=== PATIENT | male | born 1950 | race African-American/Black ===

== ENCOUNTER 2018-08-01 16:26 | Inpatient (IN) | payer MEDICARE ==
[~2018-08-01] VITALS: Ht 190.5 cm; Wt 92.3 kg
[~2018-08-01 16:26] MED LIST: AMLO-145 PO; DOCU-144 PO; OMEP20CA16 PO; TIMO15DR16 BOTH EYES
[2018-08-01 16:29] VITALS: Ht 190.5 cm; Wt 92.3 kg
[2018-08-01] MEDS ORDERED: SOD CHLORIDE 0.9% 500 ML IV STA (17:23)
[2018-08-01] MEDS ORDERED: TIMO5DRO30 BOTH EYES (18:00)
[2018-08-01] MEDS ORDERED: AMLO-147 PO (18:00)
[2018-08-01] MEDS ORDERED: OMEP20CA16 PO (18:01)
--- NOTE | 2018-08-01 18:40 | ERD ---
ER Documentation Chief Complaint Chief Complaint BLOOD IN STOOL TODAY HPI 67-year-old male with a history of hypertension and GI bleed recently admitted to [facility] for severe GI bleeding in May 20, 2018, presenting to the ER for b loody bowel movements that started today at 4 PM. He has had multiple gross bloody bowel movements with no associated rectal or abdominal pain. He denies any dizziness, chest pain, shortness of breath. He had 2 colonoscopies and an endoscopy done at [facility] which did not reveal any source of bleeding. He was diagnosed with a "retroperitoneal mass" and was told to get a biopsy which she has not done yet. He does drink alcohol, multiple drinks a day. However he was not told that he had esophageal varices or ulcers. ROS All systems reviewed and are negative except as per history of present illness. Medications Home Meds Reported Medications Omeprazole* (Omeprazole*) 20 Mg Capsule.dr, 20 MG PO DAILY, #30 CAP 08/01/18 Amlodipine Besylate* (Amlodipine Besylate*) 10 Mg Tablet, 10 MG PO DAILY, #30 TAB 08/01/18 Timolol Maleate* (Timoptic*) 0.5%-5ml Opht, 1 DROP BOTH EYES BID, #1 EA 08/01/18 Discontinued Reported Medications Amlodipine Besylate* (Amlodipine Besylate*) 5 Mg Tablet, 5 MG PO DAILY, #30 TAB 03/23/16 Omeprazole* (Omeprazole*) 20 Mg Capsule.dr, 20 MG PO DAILY, #30 CAP 03/23/16 Timolol Maleate* (Timolol Maleate* Ophth) 0.5%-15ml Opht, 1 DROP BOTH EYES BID, #1 EA 03/23/16 Discontinued Scripts Docusate Sodium* (Colace*) 100 Mg Capsule, 100 MG PO BID for CONSTIPATION, #30 CAP Prov:REX NATH 03/24/16 Allergies Allergies: Coded Allergies: Gadolinium-Containing Contrast Medi (Unverified Allergy, Unknown, 08/01/18) iodine (Verified Allergy, Unknown, 08/01/18) technetium-99m (Unverified Allergy, Unknown, 08/01/18) PMhx/Soc History of Surgery: Yes (T&A, HYSTEOCYTOMA R NOSE, R ARM SQUAMOUS CELL REMVL) Anesthesia Reaction: No Hx Neurological Disorder: No Hx Respiratory Disorders: No Hx Cardiac Disorders: Yes (HTN) Hx Psychiatric Problems: No Hx Miscellaneous Medical Probl: Yes (INGUINAL HERNIA, ANEMIA (W/ BLOOD TRANSFUSION)) Hx Alcohol Use: Yes (OCCASIONAL) Hx Substance Use: No Hx Tobacco Use: Yes (1 PPD X47 YRS) Smoking Status: Current every day smoker FmHx Family History: No diabetes Physical Exam Vitals Vital Signs Date Temp Pulse Resp B/P (MAP) Pulse Ox O2 O2 Flow FiO2 Time Delivery Rate 08/01/18 98.4 82 18 124/77 98 Room Air 17:30 (93) 08/01/18 97.6 98 20 135/80 100 16:29 (98) Physical Exam Const: No acute distress Head: Atraumatic Eyes: Normal Conjunctiva ENT: Normal External Ears, Nose and Mouth. Neck: Full range of motion. No meningismus. Resp: Clear to auscultation bilaterally Cardio: Regular rate and rhythm, no murmurs Abd: Soft, non tender, non distended. Normal bowel sounds Skin: No petechiae or rashes Back: No midline or flank tenderness Ext: No cyanosis, or edema Neur: Awake and alert Psych: Normal Mood and Affect Result Diagram: 08/01/18 1727 08/01/18 1727 Results 24 hrs Laboratory Tests Test 08/01/18 17:27 White Blood Count 6.0 10^3/ul Red Blood Count 4.23 10^6/ul Hemoglobin 11.4 g/dl Hematocrit 35.2 % Mean Corpuscular Volume 83.2 fl Mean Corpuscular Hemoglobin 27.0 pg Mean Corpuscular Hemoglobin Concent 32.4 g/dl Red Cell Distribution Width 13.0 % Platelet Count 149 10^3/UL Mean Platelet Volume 9.9 fl Immature Granulocytes % 0.200 % Neutrophils % 78.8 % Lymphocytes % 11.6 % Monocytes % 8.4 % Eosinophils % 0.5 % Basophils % 0.5 % Nucleated Red Blood Cells % 0.0 /100WBC Immature Granulocytes # 0.010 10^3/ul Neutrophils # 4.8 10^3/ul Lymphocytes # 0.7 10^3/ul Monocytes # 0.5 10^3/ul Eosinophils # 0.0 10^3/ul Basophils # 0.0 10^3/ul Nucleated Red Blood Cells # 0.0 10^3/ul Prothrombin Time 13.7 Sec Prothrombin Time Ratio 1.1 INR International Normalized Ratio 1.04 Activated Partial Thromboplast Time 31.5 Sec Stool Occult Blood POSITIVE Sodium Level 145 mmol/L Potassium Level 3.9 mmol/L Chloride Level 106 mmol/L Carbon Dioxide Level 28 mmol/L Anion Gap 11 Blood Urea Nitrogen 25 mg/dl Creatinine 0.79 mg/dl Est Glomerular Filtrat Rate mL/min > 60 mL/min Glucose Level 92 mg/dl Calcium Level 9.3 mg/dl Total Bilirubin 0.1 mg/dl Direct Bilirubin 0.00 mg/dl Indirect Bilirubin 0.1 mg/dl Aspartate Amino Transf (AST/SGOT) 25 IU/L Alanine Aminotransferase (ALT/SGPT) 24 IU/L Alkaline Phosphatase 59 IU/L Total Protein 6.8 g/dl Albumin 4.4 g/dl Globulin 2.40 g/dl Albumin/Globulin Ratio 1.83 Current Medications Medications Dose Sig/Kayla Start Time Status Last (Trade) Ordered Route PRN Stop Time Admin Dose Reason Admin Sodium 500 ml @ Q1H STAT 08/01/18 DC 08/01/18 Chloride 500 mls/hr IV 17:23 08/01/18 17:46 18:22 Ondansetron 4 mg ER BRIDGE 08/01/18 HCl (Zofran PRN IV 19:00 08/02/18 Inj) NAUSEA AND/OR 18:59 VOMITING 650 mg ER BRIDGE 08/01/18 Acetaminophen PRN PO MILD 19:00 08/02/18 (Tylenol PAIN(1-3)OR 18:59 Tab) ELEVATED TEMP Sodium 1,000 ml @ Q10H IV 08/01/18 08/01/18 Chloride 100 mls/hr 19:00 19:12 Procedures/MDM EMERGENT LABS AND DIAGNOSTIC STUDIES: Lab Results above were reviewed and interpreted by me. CBC: Mild anemia CMP: Mild hypernatremia with elevated BUN. No evidence of severe electrolyte abnormality, renal failure, hypoglycemia, liver failure, or biliary obstruction Coags normal with no evidence of coagulopathy Initial Nursing notes reviewed. Previous Medical Records requested via the Electronic Health Record. EMERGENCY DEPARTMENT COURSE / MEDICAL DECISION MAKING: Patient is presenting with grossly bloody bowel movements of unclear etiology. I have a higher suspicion for a lower source of the bleed rather than upper GI bleed. He is hemodynamically stable without evidence of severe anemia. However given he has had multiple bloody bowel movements within the past 2 hours, I do not feel he is stable for discharge and will require admission. I have requested his records from [facility]. At this time he does not need a blood transfusion but is at risk for rapid decompensation and anemia. I did request records from [facility] and received some of the records that show that the patient had a colonoscopy and a tagged RBC scan done there without any clear evidence of where the GI bleeding was coming from. I contacted GI, Dr. Christiansen, per the request of the admitting team for consultation but have not heard back from him yet. Accepting Care Team: Current data and ongoing care discussed. Time: Time of admission Primary Provider: Dr. Adhikari Departure Diagnosis: Primary Impression: Rectal bleeding Condition: Serious GLENYS ALFONSO MD Aug 01, 2018 18:39
[2018-08-01] MEDS ORDERED: ACETAMINOPHEN 325 MG TAB PO PRN (19:00)
[2018-08-01] MEDS ORDERED: ONDANSETRON 4 MG INJ IV PRN (19:00)
[2018-08-01] MEDS: SOD CHLORIDE 0.9% 1,000 ML IV SCH (19:12)
[2018-08-01 23:25] VITALS: PULSE 91
--- NOTE | 2018-08-01 23:57 | HP ---
Date/Time of Note Date/Time of Note DATE: 08/01/18 TIME: 23:57 Assessment/Plan VTE Prophylaxis Pharmacological prophylaxis: heparin Lines/Catheters IV Catheter Type (from Nrs): Peripheral IV Assessment/Plan Assessment/Plan 1. Bright red blood per rectum -Admit to telemetry unit -Protonix drip -Monitor H&H closely and transfuse as needed -GI consult -Patient reported having had EGD and colonoscopy at [facility] couple months ago. Will attempt to obtain records 2. Hypertension: BP within goal 3. History of right arm SCC, status post excisional removal Result Diagram: 08/01/18 1727 08/01/18 1727 Results 24hrs Laboratory Tests Test 08/01/18 17:27 White Blood Count 6.0 Red Blood Count 4.23 L Hemoglobin 11.4 L Hematocrit 35.2 L Mean Corpuscular Volume 83.2 Mean Corpuscular Hemoglobin 27.0 L Mean Corpuscular Hemoglobin Concent 32.4 Red Cell Distribution Width 13.0 Platelet Count 149 Mean Platelet Volume 9.9 # Immature Granulocytes % 0.200 Neutrophils % 78.8 H Lymphocytes % 11.6 L Monocytes % 8.4 Eosinophils % 0.5 Basophils % 0.5 Nucleated Red Blood Cells % 0.0 Immature Granulocytes # 0.010 Neutrophils # 4.8 Lymphocytes # 0.7 L Monocytes # 0.5 Eosinophils # 0.0 Basophils # 0.0 Nucleated Red Blood Cells # 0.0 Prothrombin Time 13.7 Prothrombin Time Ratio 1.1 INR International Normalized Ratio 1.04 Activated Partial Thromboplast Time 31.5 Stool Occult Blood POSITIVE Sodium Level 145 H Potassium Level 3.9 Chloride Level 106 Carbon Dioxide Level 28 Anion Gap 11 Blood Urea Nitrogen 25 H Creatinine 0.79 Est Glomerular Filtrat Rate mL/min > 60 Glucose Level 92 Calcium Level 9.3 Total Bilirubin 0.1 L Direct Bilirubin 0.00 Indirect Bilirubin 0.1 Aspartate Amino Transf (AST/SGOT) 25 Alanine Aminotransferase (ALT/SGPT) 24 Alkaline Phosphatase 59 Total Protein 6.8 Albumin 4.4 Globulin 2.40 Albumin/Globulin Ratio 1.83 HPI/ROS Admit Date/Time Admit Date/Time Aug 01, 2018 at 18:43 Hx of Present Illness This is a [age]-year-old male with a history of hypertension, right arm SCC status post excisional removal. Patient presented to the ER complaining of bright red blood per rectum. Denied hematemesis. Reported history of GI bleed. He said he had EGD and colonoscopy at [facility] couple months ago. He said he was told it was negative. It seems like at that time his hemoglobin was as low as 4. When presented to ER, vitals were stable. Initial hemoglobin 11. PMH/Family/Social Past Medical History Medications Current Medications Ondansetron HCl (Zofran Inj) 4 mg ER BRIDGE PRN IV NAUSEA AND/OR VOMITING; Start 08/01/18 at 19:00; Stop 08/02/18 at 18:59 Acetaminophen (Tylenol Tab) 650 mg ER BRIDGE PRN PO MILD PAIN(1-3)OR ELEVATED TEMP; Start 08/01/18 at 19:00; Stop 08/02/18 at 18:59 Sodium Chloride 1,000 ml @ 100 mls/hr Q10H IV Last administered on 08/01/18at 19:12; Admin Dose 100 MLS/HR; Start 08/01/18 at 19:00 Coded Allergies: Gadolinium-Containing Contrast Medi (Unverified Allergy, Unknown, 08/01/18) iodine (Verified Allergy, Unknown, 08/01/18) technetium-99m (Unverified Allergy, Unknown, 08/01/18) Social History Smoking Status: Current every day smoker Exam/Review of Systems Vital Signs Vitals Vital Signs Date Temp Pulse Resp B/P (MAP) Pulse Ox O2 O2 Flow FiO2 Time Delivery Rate 08/01/18 91 23:25 08/01/18 20 122/61 98 Room Air 23:06 (81) 08/01/18 98.2 20:30 Exam Exam Constitutional: other (no acute distress) Head: normocephalic Respiratory: other (slight decreased at bases) Cardiovascular: regular rate and rhythm Gastrointestinal: soft Extremities: normal pulses PMH/Family/Social Past Medical History Medical History: other (see hpi) Coded Allergies: No Known Drug Allergy (Verified Allergy, Unknown, 03/17/16) Past Surgical History Past Surgical Hx: other (see hpi) Family History Significant Family History: no pertinent family hx Social History Alcohol Use: other Smoking Status: Unknown if ever smoked Drug Use: other TINY VAZQUEZ MD Aug 01, 2018 23:57
[2018-08-02] VITALS (10 sets, daily range): BP systolic 104–131; BP diastolic 59–67; PULSE 62–75; RESP 18
[2018-08-02] MEDS: PANTOPRAZOLE IV 80 MG in SOD CHLORIDE 0.9% 100 ML IV SCH ×2 (03:52→13:00)
[2018-08-02] MEDS: SOD CHLORIDE 0.9% 1,000 ML IV SCH ×2 (05:34→15:00)
[2018-08-02] MEDS ORDERED: SOD CHLORIDE 0.9% 250 ML IV* ONE (09:02)
--- NOTE | 2018-08-02 12:12 | PN ---
Date/Time of Note Date/Time of Note DATE: 08/02/18 TIME: 12:05 Assessment/Plan VTE Prophylaxis SCD applied (from Nsg): Yes Pharmacological prophylaxis: other Lines/Catheters IV Catheter Type (from Nrsg): Peripheral IV Assessment/Plan Hospital Course S: Patient presently getting blood transfusion still waiting to be seen by GI team. O: VS - see below PE: Gen: lying in bed, no acute distress Head: Atraumatic Eyes: Normal Conjunctiva ENT: Normal External Ears, Nose and Mouth. Neck: Full range of motion. No meningismus. Resp: Clear to auscultation bilaterally Cardio: Regular rate and rhythm, no murmurs Abd: Soft, non tender, non distended. Normal bowel sounds Ext: No cyanosis, or edema Neur: No focal deficits Assessment/Plan: 67 M who presents with: 1. Bright red blood per rectum -still present, hemoglobin has been slowly dropping, stool occult test positive -Continue Protonix drip -Monitor H&H closely and transfuse as needed -PRBC started now -Follow-up recommendations from GI consult -Patient reported having had EGD and colonoscopy at [facility] couple months ago (per patient apparently results were negative then?). Will attempt to obtain records 2. Hypertension: BP within goal -Continue current medications, monitor for now 3. History of right arm SCC, status post excisional removal -Monitor Result Diagram: 08/02/188 08/02/18 0448 Results 24hrs Laboratory Tests Test 08/01/18 17:27 08/02/18 00:28 08/02/18 04:48 White Blood Count 6.0 4.8 Red Blood Count 4.23 L 3.01 #L Hemoglobin 11.4 L 9.5 L 8.2 L Hematocrit 35.2 L 28.5 L 25.1 L Mean Corpuscular Volume 83.2 83.4 Mean Corpuscular Hemoglobin 27.0 L 27.2 L Mean Corpuscular Hemoglobin Concent 32.4 32.7 Red Cell Distribution Width 13.0 13.0 Platelet Count 149 120 L Mean Platelet Volume 9.9 # 10.3 Immature Granulocytes % 0.200 0.400 Neutrophils % 78.8 H 76.3 Lymphocytes % 11.6 L 14.5 L Monocytes % 8.4 8.0 Eosinophils % 0.5 0.6 Basophils % 0.5 0.2 Nucleated Red Blood Cells % 0.0 0.0 Immature Granulocytes # 0.010 0.020 Neutrophils # 4.8 3.6 Lymphocytes # 0.7 L 0.7 L Monocytes # 0.5 0.4 Eosinophils # 0.0 0.0 Basophils # 0.0 0.0 Nucleated Red Blood Cells # 0.0 0.0 Prothrombin Time 13.7 Prothrombin Time Ratio 1.1 INR International Normalized Ratio 1.04 Activated Partial Thromboplast Time 31.5 Stool Occult Blood POSITIVE Sodium Level 145 H 146 H Potassium Level 3.9 3.5 Chloride Level 106 110 Carbon Dioxide Level 28 30 Anion Gap 11 6 Blood Urea Nitrogen 25 H 28 H Creatinine 0.79 0.81 Est Glomerular Filtrat Rate mL/min > 60 > 60 Glucose Level 92 100 Calcium Level 9.3 8.7 Total Bilirubin 0.1 L 0.1 L Direct Bilirubin 0.00 0.00 Indirect Bilirubin 0.1 0.1 Aspartate Amino Transf (AST/SGOT) 25 14 L Alanine Aminotransferase (ALT/SGPT) 24 27 Alkaline Phosphatase 59 42 Total Protein 6.8 5.1 #L Albumin 4.4 3.1 #L Globulin 2.40 2.00 Albumin/Globulin Ratio 1.83 1.55 Exam/Review of Systems Vital Signs Vitals Vital Signs Date Temp Pulse Resp B/P (MAP) Pulse Ox O2 O2 Flow FiO2 Time Delivery Rate 08/02/18 98.4 64 18 129/66 99 11:17 (87) 08/01/18 Room Air 23:06 Intake and Output 08/01/18 08/01/18 08/02/18 1515:00 23:00 07:00 IntakeIntake Total 890 ml BalanceBalance 890 ml Medications Medications Current Medications Ondansetron HCl (Zofran Inj) 4 mg ER BRIDGE PRN IV NAUSEA AND/OR VOMITING; Start 08/01/18 at 19:00; Stop 08/02/18 at 18:59 Acetaminophen (Tylenol Tab) 650 mg ER BRIDGE PRN PO MILD PAIN(1-3)OR ELEVATED TEMP; Start 08/01/18 at 19:00; Stop 08/02/18 at 18:59 Sodium Chloride 1,000 ml @ 100 mls/hr Q10H IV Last administered on 08/02/18at 05:34; Admin Dose 100 MLS/HR; Start 1/2/19 at 19:00 Pantoprazole 80 mg/Sodium Chloride 100 ml @ 10 mls/hr Q10H IV Last administered on 08/02/18at 03:52; Admin Dose 10 MLS/HR; Start 08/02/18 at 03:00 DANIEL PALOMO Aug 02, 2018 12:12
--- NOTE | 2018-08-02 12:18 | PN ---
Date/Time of Note Date/Time of Note DATE: 08/02/18 TIME: 12:00 Assessment/Plan VTE Prophylaxis SCD applied (from Nsg): Yes Pharmacological prophylaxis: other Lines/Catheters IV Catheter Type (from Nrsg): Peripheral IV Assessment/Plan Hospital Course Duplicate Result Diagram: 08/02/18 0448 08/02/18 0448 Results 24hrs Laboratory Tests Test 08/01/18 17:27 08/02/18 00:28 08/02/18 04:48 White Blood Count 6.0 4.8 Red Blood Count 4.23 L 3.01 #L Hemoglobin 11.4 L 9.5 L 8.2 L Hematocrit 35.2 L 28.5 L 25.1 L Mean Corpuscular Volume 83.2 83.4 Mean Corpuscular Hemoglobin 27.0 L 27.2 L Mean Corpuscular Hemoglobin Concent 32.4 32.7 Red Cell Distribution Width 13.0 13.0 Platelet Count 149 120 L Mean Platelet Volume 9.9 # 10.3 Immature Granulocytes % 0.200 0.400 Neutrophils % 78.8 H 76.3 Lymphocytes % 11.6 L 14.5 L Monocytes % 8.4 8.0 Eosinophils % 0.5 0.6 Basophils % 0.5 0.2 Nucleated Red Blood Cells % 0.0 0.0 Immature Granulocytes # 0.010 0.020 Neutrophils # 4.8 3.6 Lymphocytes # 0.7 L 0.7 L Monocytes # 0.5 0.4 Eosinophils # 0.0 0.0 Basophils # 0.0 0.0 Nucleated Red Blood Cells # 0.0 0.0 Prothrombin Time 13.7 Prothrombin Time Ratio 1.1 INR International Normalized Ratio 1.04 Activated Partial Thromboplast Time 31.5 Stool Occult Blood POSITIVE Sodium Level 145 H 146 H Potassium Level 3.9 3.5 Chloride Level 106 110 Carbon Dioxide Level 28 30 Anion Gap 11 6 Blood Urea Nitrogen 25 H 28 H Creatinine 0.79 0.81 Est Glomerular Filtrat Rate mL/min > 60 > 60 Glucose Level 92 100 Calcium Level 9.3 8.7 Total Bilirubin 0.1 L 0.1 L Direct Bilirubin 0.00 0.00 Indirect Bilirubin 0.1 0.1 Aspartate Amino Transf (AST/SGOT) 25 14 L Alanine Aminotransferase (ALT/SGPT) 24 27 Alkaline Phosphatase 59 42 Total Protein 6.8 5.1 #L Albumin 4.4 3.1 #L Globulin 2.40 2.00 Albumin/Globulin Ratio 1.83 1.55 Exam/Review of Systems Vital Signs Vitals Vital Signs Date Temp Pulse Resp B/P (MAP) Pulse Ox O2 O2 Flow FiO2 Time Delivery Rate 08/02/18 98.4 64 18 129/66 99 11:17 (87) 08/01/18 Room Air 23:06 Intake and Output 08/01/18 08/01/18 08/02/18 1515:00 23:00 07:00 IntakeIntake Total 890 ml BalanceBalance 890 ml Medications Medications Current Medications Ondansetron HCl (Zofran Inj) 4 mg ER BRIDGE PRN IV NAUSEA AND/OR VOMITING; Start 08/01/18 at 19:00; Stop 08/02/18 at 18:59 Acetaminophen (Tylenol Tab) 650 mg ER BRIDGE PRN PO MILD PAIN(1-3)OR ELEVATED TEMP; Start 08/01/18 at 19:00; Stop 08/02/18 at 18:59 Sodium Chloride 1,000 ml @ 100 mls/hr Q10H IV Last administered on 08/02/18at 05:34; Admin Dose 100 MLS/HR; Start 08/01/18 at 19:00 Pantoprazole 80 mg/Sodium Chloride 100 ml @ 10 mls/hr Q10H IV Last administered on 08/02/18at 03:52; Admin Dose 10 MLS/HR; Start 08/02/18 at 03:00 DANIEL PALOMO Aug 02, 2018 12:18
--- NOTE | 2018-08-02 13:45 | CONS ---
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 Specifically EGD with push enteroscopy as it was only noted that is was completed without noted results of procedure Monitor labs, transfuse as needed CT abdomen/pelvis -eluate retroperitoneal mass found in March, evaluate size and possible communication with small bowel and/or colon Pt with allergies to contrast/iodine- IV contrast in the 1970's- reaction- hives- gomez not want to risk allergic reaction declining po contrast. Will order CT abd/pelvis without contrast. Discussed ct without contrast will not provide as much information, pt verbalized understanding and again declines PO contrast No plan for repeat endoscopic evaluation at this time Patient seen in collaboration with Dr Smith Result Diagram: 08/02/18 0448 08/02/18 0448 Results 24hrs Laboratory Tests Test 08/01/18 17:27 08/02/18 00:28 08/02/18 04:48 White Blood Count 6.0 4.8 Red Blood Count 4.23 L 3.01 #L Hemoglobin 11.4 L 9.5 L 8.2 L Hematocrit 35.2 L 28.5 L 25.1 L Mean Corpuscular Volume 83.2 83.4 Mean Corpuscular Hemoglobin 27.0 L 27.2 L Mean Corpuscular Hemoglobin Concent 32.4 32.7 Red Cell Distribution Width 13.0 13.0 Platelet Count 149 120 L Mean Platelet Volume 9.9 # 10.3 Immature Granulocytes % 0.200 0.400 Neutrophils % 78.8 H 76.3 Lymphocytes % 11.6 L 14.5 L Monocytes % 8.4 8.0 Eosinophils % 0.5 0.6 Basophils % 0.5 0.2 Nucleated Red Blood Cells % 0.0 0.0 Immature Granulocytes # 0.010 0.020 Neutrophils # 4.8 3.6 Lymphocytes # 0.7 L 0.7 L Monocytes # 0.5 0.4 Eosinophils # 0.0 0.0 Basophils # 0.0 0.0 Nucleated Red Blood Cells # 0.0 0.0 Prothrombin Time 13.7 Prothrombin Time Ratio 1.1 INR International Normalized Ratio 1.04 Activated Partial Thromboplast Time 31.5 Stool Occult Blood POSITIVE Sodium Level 145 H 146 H Potassium Level 3.9 3.5 Chloride Level 106 110 Carbon Dioxide Level 28 30 Anion Gap 11 6 Blood Urea Nitrogen 25 H 28 H Creatinine 0.79 0.81 Est Glomerular Filtrat Rate mL/min > 60 > 60 Glucose Level 92 100 Calcium Level 9.3 8.7 Total Bilirubin 0.1 L 0.1 L Direct Bilirubin 0.00 0.00 Indirect Bilirubin 0.1 0.1 Aspartate Amino Transf (AST/SGOT) 25 14 L Alanine Aminotransferase (ALT/SGPT) 24 27 Alkaline Phosphatase 59 42 Total Protein 6.8 5.1 #L Albumin 4.4 3.1 #L Globulin 2.40 2.00 Albumin/Globulin Ratio 1.83 1.55 CC: LUCIA SMITH ; Consultation Date/Type/Reason Admit Date/Time Aug 01, 2018 at 18:43 Date of Consultation: Aug 02, 2018 Type of Consult GI Reason for Consultation Hematochezia Hx of Present Illness This a 67-year-old male with past medical history of hypertension, glaucoma, recent GI bleed who was evaluated at [facility] patient underwent full workup including CAT scan of the abdomen which identified retroperitoneal mass noted medial to right kidney, possible enlarged lymph node with central necrosis. He is status post EGD which was negative on 05/03/18, colonoscopy which showed old blood but no active bleeding, tagged RBC scan which was inconclusive at that time patient refused CT angio. On 05/04/18 CT with contrast shows necrotic mass repeat EGD with push enterography was completed however no report is noted. Bleeding persists and again on 05/11/18 colonoscopy and tagged RBC scan was completed which did not localize bleeding site need to have burgundy stools. Hemoglobin eventually stabilized and patient declined further workup regarding retroperitoneal mass felt he was stable and discharged since then patient was doing well 2 days ago when he noted moderate amount of hematochezia came into the ER for further evaluation.Labs initially showed a hemoglobin 11.4 retracts this morning decreased down to 8.2 he is status post 1 unit of packed RBCs currently denies abdominal pain, nausea, vomiting. Last bowel movement was this a.m. patient noted now onset of bright red to be darker in appearance since discharge from [facility] patient notes a decrease in smoking and alcohol use. Review of Systems: A 12 system, review was conducted and is negative except as noted in the HPI or here. Past Medical History Medications Current Medications Ondansetron HCl (Zofran Inj) 4 mg ER BRIDGE PRN IV NAUSEA AND/OR VOMITING; Start 08/01/18 at 19:00; Stop 08/02/18 at 18:59 Acetaminophen (Tylenol Tab) 650 mg ER BRIDGE PRN PO MILD PAIN(1-3)OR ELEVATED TEMP; Start 08/01/18 at 19:00; Stop 08/02/18 at 18:59 Sodium Chloride 1,000 ml @ 100 mls/hr Q10H IV Last administered on 08/02/18at 05:34; Admin Dose 100 MLS/HR; Start 08/01/18 at 19:00 Pantoprazole 80 mg/Sodium Chloride 100 ml @ 10 mls/hr Q10H IV Last administered on 08/02/18at 03:52; Admin Dose 10 MLS/HR; Start 08/02/18 at 03:00 Allergies: Coded Allergies: Gadolinium-Containing Contrast Medi (Unverified Allergy, Unknown, 08/01/18) iodine (Verified Allergy, Unknown, 08/01/18) technetium-99m (Unverified Allergy, Unknown, 08/01/18) Social History Smoking Status: Current every day smoker Exam/Review of Systems Vital Signs Vitals Vital Signs Date Temp Pulse Resp B/P (MAP) Pulse Ox O2 O2 Flow FiO2 Time Delivery Rate 08/02/18 62 12:01 08/02/18 98.4 18 129/66 99 11:17 (87) 08/01/18 Room Air 23:06 Intake and Output 08/01/18 08/01/18 08/02/18 1515:00 23:00 07:00 IntakeIntake Total 890 ml BalanceBalance 890 ml Exam PHYSICAL EXAMINATION: GENERAL: Alert & oriented x 3, in no acute distress, flat affect SKIN: No lesions EYES: Pupils equal reactive to light, no discharge. EARS/NOSE AND THROAT: Ears normal, nose normal, oropharynx normal NECK: Supple CARDIOVASCULAR: Heart: Regular rate and rhythm RESPIRATORY: Lungs clear to auscultation GASTROINTESTINAL AND LIVER: Abdomen: Soft, non tenderness, non-distended, no hernias, no masses, no organomegaly, no ascites, no guarding, no rebound tenderness, normoactive bowel sounds. Rectal: Deferred. GENITOURINARY: Not examined Medications Medications Current Medications Ondansetron HCl (Zofran Inj) 4 mg ER BRIDGE PRN IV NAUSEA AND/OR VOMITING; Star t 08/01/18 at 19:00; Stop 08/02/18 at 18:59 Acetaminophen (Tylenol Tab) 650 mg ER BRIDGE PRN PO MILD PAIN(1-3)OR ELEVATED TEMP; Start 08/01/18 at 19:00; Stop 08/02/18 at 18:59 Sodium Chloride 1,000 ml @ 100 mls/hr Q10H IV Last administered on 08/02/18at 05:34; Admin Dose 100 MLS/HR; Start 08/01/18 at 19:00 Pantoprazole 80 mg/Sodium Chloride 100 ml @ 10 mls/hr Q10H IV Last administered on 08/02/18at 03:52; Admin Dose 10 MLS/HR; Start 08/02/18 at 03:00 DREW COLLINS Aug 02, 2018 13:44
[2018-08-02] MEDS ORDERED: BARIUM SULF 2% 450 ML BTL (BERRY SMOOTHIE) PO ONE (17:00)
[2018-08-03] VITALS (15 sets, daily range): BP systolic 121–142; BP diastolic 60–76; PULSE 60–79; RESP 17–18
[2018-08-03] MEDS: SOD CHLORIDE 0.9% 1,000 ML IV SCH ×3 (01:00→18:35)
[2018-08-03] MEDS: PANTOPRAZOLE IV 80 MG in SOD CHLORIDE 0.9% 100 ML IV SCH ×3 (03:19→15:09)
--- NOTE | 2018-08-03 11:59 | PN ---
Date/Time of Note Date/Time of Note DATE: 08/03/18 TIME: 11:57 Assessment/Plan VTE Prophylaxis Risk score (from Ns)>0 risk: 2 SCD applied (from Ns): No SCD contraindicated: other Pharmacological prophylaxis: other Pharm contraindication: bleeding Lines/Catheters IV Catheter Type (from [facility]): Peripheral IV Assessment/Plan Hospital Course S: Patient had CT scan abdomen pelvis without contrast performed yesterday. Also received blood transfusion yesterday. Denies any lower GI bleeding presently. Labs from this morning are still pending. O: VS - see below PE: Gen: lying in bed, no acute distress Head: Atraumatic Eyes: Normal Conjunctiva ENT: Normal External Ears, Nose and Mouth. Neck: Full range of motion. No meningismus. Resp: Clear to auscultation bilaterally Cardio: Regular rate and rhythm, no murmurs Abd: Soft, non tender, non distended. Normal bowel sounds Ext: No cyanosis, or edema Neur: No focal deficits CT abdomen pelvis without contrast: IMPRESSION: 1. No retroperitoneal mass is evident on this limited noncontrast CT. 2. Multiple low-density lesions within the spleen are incompletely characterize d. If there are high-risk clinical factors, including a known history of a primary malignancy, recommend MRI of the abdomen with and without contrast for further characterization. 3. Nonobstructive right-sided nephrolithiasis. 4. Mild colonic diverticulosis, uncomplicated. Assessment/Plan: 67 M who presents with: 1. Bright red blood per rectum -patient presented with this, status post PRBC transfusion yesterday. CBC from this morning is pending. CT scan abdomen pelvis results reviewed see above -Continue Protonix drip for now, does not appear to be having any recent lower GI bleeding. -Monitor H&H closely -results pending from this more -Follow-up recommendations from GI consult -will discuss findings of the CT scan abdomen pelvis with them -she may benefit from MRI abdomen question 2. Hypertension: BP within goal -Continue current medications, monitor for now 3. History of right arm SCC, status post excisional removal -Monitor Result Diagram: 08/02/1844708/02/18447 Exam/Review of Systems Vital Signs Vitals Vital Signs Date Temp Pulse Resp B/P (MAP) Pulse Ox O2 O2 Flow FiO2 Time Delivery Rate 1/4/19 98.1 79 18 137/73 98 11:06 (94) 08/03/18 Nasal 10:12 Cannula Intake and Output 08/02/18 08/02/18 08/03/18 1515:00 23:00 07:00 IntakeIntake Total 350 ml 500 ml BalanceBalance 350 ml 500 ml Medications Medications Current Medications Sodium Chloride 1,000 ml @ 100 mls/hr Q10H IV Last administered on 08/03/18at 07:52; Admin Dose 100 MLS/HR; Start 08/01/18 at 19:00 Pantoprazole 80 mg/Sodium Chloride 100 ml @ 10 mls/hr Q10H IV Last administered on 08/03/18at 03:19; Admin Dose 10 MLS/HR; Start 08/02/18 at 03:00 DANIEL PALOMO Aug 03, 2018 11:59
[2018-08-03] MEDS ORDERED: ACETAMINOPHEN 325 MG TAB PO PRN (13:00)
[2018-08-03] MEDS ORDERED: ONDANSETRON 4 MG INJ IV PRN (13:00)
--- NOTE | 2018-08-03 16:32 | PN ---
Date/Time of Note Date/Time of Note DATE: 08/03/18 TIME: 16:25 Assessment/Plan VTE Prophylaxis Risk score ([place] [facility]0 risk: 2 SCD applied (from [facility] No SCD contraindicated: low risk/ambulating Pharmacological prophylaxis: NA/contraindicated Pharm contraindication: bleeding Lines/Catheters IV [facility]ter Type (from [facility]): Peripheral IV Assessment/Plan Assessment/Plan Assessment: Hematochezia Recent history of GI bleed evaluated at [place] Last EGD/colonoscopy 05/03/2018 -negative for active bleeding Tagged RBC scans at [place] were negative Retroperitoneal mass -necrotic -not seen on current CT scan Bilateral glaucoma Diverticulosis History of diverticulitis Hypertension Homelessness 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 Subjective: Patient is doing well. Denies abdominal pain, rectal pain, nausea or vomiting. No bowel movement overnight. Hemoglobin is stable. No evidence of overt GI bleeding. Patient is tolerating diet well. With no further recommendations GI will sign off and will be available for consultation upon request. PHYSICAL EXAMINATION: GENERAL: Alert & oriented x 3, in no acute distress, in no acute distress SKIN: No lesions EYES: Pupils equal reactive to light, no discharge. EARS/NOSE AND THROAT: Ears normal, nose normal, oropharynx normal NECK: Supple CARDIOVASCULAR: Heart: Regular rate and rhythm RESPIRATORY: Lungs clear to auscultation GASTROINTESTINAL AND LIVER: Abdomen: Soft, non tenderness, non-distended, no hernias, no masses, no organomegaly, no ascites, no guarding, no rebound tenderness, normoactive bowel sounds. Rectal: Deferred. GENITOURINARY: Not examined Result Diagram: 08/03/18 1224 08/03/18 1224 Results 24hrs Laboratory Tests Test 08/03/18 12:24 White Blood Count 5.3 Red Blood Count 3.61 L Hemoglobin 9.9 #L Hematocrit 30.7 #L Mean Corpuscular Volume 85.0 Mean Corpuscular Hemoglobin 27.4 L Mean Corpuscular Hemoglobin Concent 32.2 Red Cell Distribution Width 13.2 Platelet Count 125 L Mean Platelet Volume 10.3 Immature Granulocytes % 0.200 Neutrophils % 79.7 H Lymphocytes % 11.8 L Monocytes % 7.2 Eosinophils % 0.9 Basophils % 0.2 Nucleated Red Blood Cells % 0.0 Immature Granulocytes # 0.010 Neutrophils # 4.2 Lymphocytes # 0.6 L Monocytes # 0.4 Eosinophils # 0.1 Basophils # 0.0 Nucleated Red Blood Cells # 0.0 Sodium Level 141 Potassium Level 3.9 Chloride Level 107 Carbon Dioxide Level 29 Anion Gap 5 Blood Urea Nitrogen 15 # Creatinine 0.75 Est Glomerular Filtrat Rate mL/min > 60 Glucose Level 100 Calcium Level 9.1 CC: JARED MACIEL MD ; Exam/Review of Systems Vital Signs Vitals Vital Signs Date Temp Pulse Resp B/P (MAP) Pulse Ox O2 O2 Flow FiO2 Time Delivery Rate 08/03/18 98.1 75 18 142/75 96 15:29 (97) 08/01/18 Room Air 23:06 Intake and Output 08/02/18 08/02/18 08/03/18 1515:00 23:00 07:00 IntakeIntake Total 350 ml 500 ml BalanceBalance 350 ml 500 ml Medications Medications Current Medications Sodium Chloride 1,000 ml @ 100 mls/hr Q10H IV Last administered on 08/03/18at 07:52; Admin Dose 100 MLS/HR; Start 08/01/18 at 19:00 Pantoprazole 80 mg/Sodium Chloride 100 ml @ 10 mls/hr Q10H IV Last administered on 08/03/18at 15:09; Admin Dose 10 MLS/HR; Start 08/02/18 at 03:00 Acetaminophen (Tylenol Tab) 650 mg Q6H PRN PO MILD PAIN(1-3)OR ELEVATED TEMP; Start 08/03/18 at 13:00 Ondansetron HCl (Zofran Inj) 4 mg Q6H PRN IV NAUSEA AND/OR VOMITING; Start 08/03 at 13:00 COREY PAINTER NP Aug 03, 2018 16:32
[2018-08-04] VITALS (7 sets, daily range): BP systolic 134–147; BP diastolic 76–81; PULSE 57–78; RESP 19–20
[2018-08-04] MEDS ORDERED: PANTOPRAZOLE (EC) 40 MG TAB PO SCH (06:00)
[2018-08-04] MEDS: SOD CHLORIDE 0.9% 1,000 ML IV SCH (08:01)
[2018-08-04] MEDS ORDERED: POTASSIUM CHLORIDE (SR) 20 MEQ TAB PO STA (09:48)
--- NOTE | 2018-08-04 09:49 | PDOCDIS ---
Discharge Instructions CONDITION [id number] Patient Condition: [id number] Stable HOME CARE INSTRUCTIONS: [id number] Special Diet: [id number] MECHANICAL SOFT ACTIVITY: [id number] Activity Restrictions: [id number] Slowly Increase Activity Rest between Activity Avoid heavy lifting FOLLOW UP/APPOINTMENTS Follow-up Plan Please take your medications as prescribed, see your doctor in the clinic in the next 1 week. If you expands any weakness or bleeding symptoms, please call your primary doctor or go to [facility] or call 911 DANIEL PALOMO Aug 04, 2018 09:49
[2018-08-04] MEDS ORDERED: TIMO5DRO30 BOTH EYES (09:50)
[2018-08-04] MEDS ORDERED: OMEP20CA16 PO (09:50)
[2018-08-04] MEDS ORDERED: AMLO-147 PO (09:50)
--- NOTE | 2018-08-04 09:57 | DS ---
Date/Time of Note Date/Time of Note DATE: 08/04/18 TIME: 09:51 Discharge Summary Admission/Discharge Info Admit Date/Time Aug 03, 2018 at 17:07 Discharge Date/Time Discharge Diagnosis Bright red blood per rectum -resolved now patient presented with this, status post PRBC transfusion this admission. Hypertension: BP within goal -Continue current medications, monitor for now History of right arm SCC, status post excisional removal -Monitor Recent history of GI bleed evaluated at [place]- Last EGD/colonoscopy 05/03/2018 - negative for active bleeding - Tagged RBC scans at [place] were negative ?Retroperitoneal mass -necrotic -not seen on current CT scan Bilateral glaucoma Diverticulosis History of diverticulitis Excessive EtOH use -counseled on cessation Patient Condition: Stable Procedures CT abdomen pelvis without contrast August 02, 2018: IMPRESSION: 1. No retroperitoneal mass is evident on this limited noncontrast CT. 2. Multiple low-density lesions within the spleen are incompletely characterized. If there are high-risk clinical factors, including a known history of a primary malignancy, recommend MRI of the abdomen with and without contrast for further characterization. 3. Nonobstructive right-sided nephrolithiasis. 4. Mild colonic diverticulosis, uncomplicated. Hx of Present Illness 67-year-old male with a history of hypertension, right arm SCC status post excisional removal. Patient presented to the ER complaining of bright red blood per rectum. Denied hematemesis. Reported history of GI bleed. He said he had EGD and colonoscopy at [place] couple months ago. He said he was told it was negative. It seems like at that time his hemoglobin was as low as 4. When presented to ER, vitals were stable. Initial hemoglobin 11. Hospital Course The patient was admitted to the telemetry unit here in the hospital. He was initially started on Protonix drip. His hemoglobin levels did appear to drop within the first 24 hours of admission as he did have some signs of mild lower GI bleeding still present. He underwent blood transfusion afterwards his lower GI bleeding/rectal bleeding symptoms resolved. Hemoglobin remained stable after the transfusion. Regarding the workup, GI team saw the patient. He underwent CT abdomen pelvis results without contrast with results noted. Despite a prior history of a possible retroperitoneal mass, per patient, the CT scan here did not show any evidence of that. Over the course of the hospital stay patient was able to ambulate, tolerated p.o. diet. Vital signs remained stable, hemoglobin remained stable. No fevers. After getting clearance from advanced manufacturing consultant team patient will be discharged home today improved condition, but is encouraged strongly to follow-up with [facility] for further workup of a possible retroperitoneal mass versus other issues including spleen (of note, our GI team reviewed patient's medical records from outside hospital - last EGD/colonoscopy 05/03/2018 -negative for active bleeding - Tagged RBC scans at [place] were negative then). See below for full list of discharge medications. Home Meds Active Scripts Omeprazole* (Omeprazole*) 20 Mg Capsule., 20 MG PO DAILY, #30 CAP 2 Refills Prov:DANIEL PALOMO S. 08/04/18 Amlodipine Besylate* (Amlodipine Besylate*) 10 Mg Tablet, 10 MG PO DAILY, #30 TA B 2 Refills Prov:DANIEL PALOMO S. 08/04/18 Timolol Maleate* (Timoptic*) 0.5%-5ml Opht, 1 DROP BOTH EYES BID, #1 EA 3 Refills Prov:DANIEL PALOMO S. 08/04/18 Discontinued Reported Medications Amlodipine Besylate* (Amlodipine Besylate*) 5 Mg Tablet, 5 MG PO DAILY, #30 TAB 03/23/16 Omeprazole* (Omeprazole*) 20 Mg Capsule.dr, 20 MG PO DAILY, #30 CAP 03/23/16 Timolol Maleate* (Timolol Maleate* Ophth) 0.5%-15ml Opht, 1 DROP BOTH EYES BID, #1 EA 03/23/16 Discontinued Scripts Docusate Sodium* (Colace*) 100 Mg Capsule, 100 MG PO BID for CONSTIPATION, #30 CAP Prov:REX NATH 03/24/16 Follow-up Plan Please take your medications as prescribed, see your doctor in the clinic in the next 1 week. If you expands any weakness or bleeding symptoms, please call your primary doctor or go to [facility] or call 911 Primary Care Provider Not On Staff Doctor Time spent on discharge: > 30 minutes Pending Labs Laboratory Tests Test 08/03/18 12:24 08/04/18 04:46 White Blood Count 5.3 10^3/ul (4.8-10.8) 4.4 10^3/ul (4.8-10.8) Red Blood Count 3.61 10^6/ul (4.70-6.10) 3.55 10^6/ul (4.70-6.10) Hemoglobin 9.9 g/dl (14.0-18.0) 9.8 g/dl (14.0-18.0) Hematocrit 30.7 % (42.0-52.0) 29.2 % (42.0-52.0) Mean Corpuscular Volume 85.0 fl (82.0-101.0) 82.3 fl (82.0-101.0) Mean Corpuscular 27.4 pg (29.0-33.0) 27.6 pg (29.0-33.0) Hemoglobin Mean Corpuscular 32.2 g/dl (32.0-37.0) 33.6 g/dl (32.0-37.0) Hemoglobin Concent Red Cell Distribution 13.2 % (11.5-14.5) 12.9 % (11.5-14.5) Width Platelet Count 125 10^3/UL (140-415) 128 10^3/UL (140-415) Mean Platelet Volume 10.3 fl (7.4-10.4) 11.0 fl (7.4-10.4) Immature Granulocytes % 0.200 % (0.001-0.429) 0.200 % (0.001-0.429) Neutrophils % 79.7 % (39.0-77.0) 73.4 % (39.0-77.0) Lymphocytes % 11.8 % (15.0-51.0) 15.7 % (15.0-51.0) Monocytes % 7.2 % (0.0-11.0) 8.2 % (0.0-11.0) Eosinophils % 0.9 % (0.0-7.0) 2.0 % (0.0-7.0) Basophils % 0.2 % (0.0-2.0) 0.5 % (0.0-2.0) Nucleated Red Blood Cells 0.0 /100WBC (0.0-0.0) 0.0 /100WBC (0.0-0.0) % Immature Granulocytes # 0.010 10^3/ul (0.0-0.031) 0.010 10^3/ul (0.0-0.031) Neutrophils # 4.2 10^3/ul (1.6-7.5) 3.2 10^3/ul (1.6-7.5) Lymphocytes # 0.6 10^3/ul (0.8-2.9) 0.7 10^3/ul (0.8-2.9) Monocytes # 0.4 10^3/ul (0.3-0.9) 0.4 10^3/ul (0.3-0.9) Eosinophils # 0.1 10^3/ul (0.0-0.5) 0.1 10^3/ul (0.0-0.5) Basophils # 0.0 10^3/ul (0.0-0.1) 0.0 10^3/ul (0.0-0.1) Nucleated Red Blood Cells 0.0 10^3/ul (0.0-0.0) 0.0 10^3/ul (0.0-0.0) # Sodium Level 141 mmol/L (135-144) 141 mmol/L (135-144) Potassium Level 3.9 mmol/L (3.5-5.1) 3.4 mmol/L (3.5-5.1) Chloride Level 107 mmol/L (97-110) 107 mmol/L (97-110) Carbon Dioxide Level 29 mmol/L (21-31) 29 mmol/L (21-31) Anion Gap 5 (5-13) 5 (5-13) Blood Urea Nitrogen 15 mg/dl (7-20) 10 mg/dl (7-20) Creatinine 0.75 mg/dl (0.61-1.24) 0.69 mg/dl (0.61-1.24) Est Glomerular Filtrat > 60 mL/min (>60) > 60 mL/min (>60) Rate mL/min Glucose Level 100 mg/dl (70-220) 103 mg/dl (70-220) Calcium Level 9.1 mg/dl (8.4-10.2) 8.9 mg/dl (8.4-10.2) DANIEL PALOMO Aug 04, 2018 09:57
== END 2018-08-04 14:36 | disposition home or self-care (01) | DRG 377 ==
LOC: E/R 16:26 → 6WM 18:43 → OBSVTOIN 08-03 17:07
PROVIDERS: ADMIT Internal Medicine; ATTEND Hospitalist
PROC: 30233N1 Transfusion of Nonautologous Red Blood Cells into Peripheral Vein, Percutaneous Approach (ICD-10-PCS; principal; 2018-08-02)
DX: K92.1 Melena (principal); K68.9 Other disorders of retroperitoneum; I10 Essential (primary) hypertension; H40.9 Unspecified glaucoma; F17.210 Nicotine dependence, cigarettes, uncomplicated; Z59.0 Homelessness; K57.30 Diverticulosis of large intestine without perforation or abscess without bleeding; Z85.828 Personal history of other malignant neoplasm of skin
CPT/HCPCS: 36415; 36430; 74176; 80048; 80053; 82270; 85014; 85018; 85025; 85610; 85730; 86850; 86900; 86901; 86920; G0378; C9113; J7030; J7040; P9016